=== PATIENT | male | born 1955 | race Two or more races ===

== ENCOUNTER 2024-06-28 00:47 | Inpatient (IN) | payer MEDICAID, OTHER ==
[~2024-06-28] VITALS: Ht 175.3 cm; Wt 82.2 kg
[2024-06-28 01:59] LABS: Basophils # (auto) 0 10 ^3/uL (0-0.2); Basophils % (auto) 0.6 % (0.0-2.0); Eosinophils # (auto) 0.2 10 ^3/uL (0-0.8); Eosinophils % (auto) 2.8 % (0.0-7.0); Hematocrit 45.1 % (41.0-53.0); Hemoglobin 15.4 g/dL (13.5-17.5); Lymphocytes # (auto) 1.9 10 ^3/uL (0.4-5.4); Lymphocytes % (auto) 23.7 % (10.0-50.0); Mean Corpuscular Hemoglobin 29.1 pg (28.0-32.0); Mean Corpuscular Hgb Conc. 34.2 g/dL (32.0-36.0); Mean Corpuscular Volume 85.1 fL (80.0-100.0); Monocytes # (auto) 0.9 10 ^3/uL (0-1.3); Monocytes % (auto) 11.1 % (0.0-12.0); Neutrophils % (auto) 61.8 % (37.0-80.0); Nucleated Red Blood Cells % 0.1 %; Platelet Count (auto) 126 10^3/uL (140-450); Red Cell Distribution Width 13.9 % (11.8-14.3); White Blood Cell 8.1 10^3/uL (4.4-10.8)
[2024-06-28 02:02] LABS: Alanine Aminotransferase 23 U/L (7-40); Alkaline Phosphatase 57 U/L (46-116); Anion Gap 8 (5-15); Aspartate Aminotransferase 20 U/L (13-40); BUN/Creatinine Ratio 14.8 (10.0-20.0); Blood Urea Nitrogen 17 mg/dL (9-23); Calcium 10.4 mg/dL (8.7-10.4); Carbon Dioxide 23 mmol/L (20-30); Chloride 105 mmol/L (98-107); Glucose 109 mg/dL (74-106); Potassium 3.8 mmol/L (3.5-5.1); Sodium 136 mmol/L (136-145)
[2024-06-28 02:03] LABS: Total Protein 8.5 g/dL (5.7-8.2)
[2024-06-28 05:00] VITALS: PULSE 70; RESP 14; O2SAT 99
[2024-06-28] MEDS: METOCLOPRAMIDE HCL 5MG/ml INJ 2ml VIAL IV ONE (05:00)
[2024-06-28] MEDS: SODIUM CHLORIDE 0.9% 1,000 ML IV ONE (05:00)
[2024-06-28] MEDS: ACETAMINOPHEN 325 MG TAB PO ONE (05:37)
[2024-06-28 08:06] VITALS: RESP 14; O2SAT 98
[2024-06-28] MEDS ORDERED: HYDROcodone-ACET 5/325MG TAB PO PRN (08:15)
[2024-06-28] MEDS ORDERED: ONDANSETRON HCL 4 MG/2 ML VIAL IV PRN (08:15)
[2024-06-28 08:22] LABS: Urine Bacteria None Seen /hpf (None Seen)
[2024-06-28 08:32] LABS: Urine Blood Negative /uL (Negative); Urine Clarity Clear (Clear); Urine Color Yellow (Yellow); Urine Protein, UAD TRACE (Negative); Urine Specific Gravity 1.017 (1.001-1.035); Urine Urobilinogen Normal (Negative); Urine WBC 1 /hpf (0 - 3); Urine pH 5.5 (5.0-9.0)
[2024-06-28 09:45] LABS: Triglycerides 116 mg/dL (< 150)
[2024-06-28 09:46] LABS: LDL Cholesterol 98 mg/dL (< 100)
[2024-06-28 09:47] LABS: Cholesterol 161 mg/dL (< 200); HDL Cholesterol 41 mg/dL (40-59)
[2024-06-28] MEDS: DULoxetine HCL 30 MG CAP PO SCH (10:03)
[2024-06-28] MEDS: SODIUM CHLORIDE 0.9% 1,000 ML IV SCH (16:31)
[2024-06-28 22:30] VITALS: BP 146/85; PULSE 69; RESP 17; TEMP 98.3; O2SAT 98
[2024-06-28] MEDS ORDERED: NIFE1TAB31 PO (23:00)
[2024-06-28] MEDS ORDERED: ROSU10TA64 PO (23:00)
[2024-06-28] MEDS ORDERED: ALPR2TAB6 PO (23:01)
[2024-06-28] MEDS ORDERED: DULO60CA41 PO (23:01)
[2024-06-28] MEDS: ATORVASTATIN 20 MG TAB PO SCH (23:12)
[2024-06-29] VITALS (7 sets, daily range): BP systolic 111–143; BP diastolic 61–86; PULSE 53–74; RESP 16–20; TEMP 97.9–98.3; O2SAT 95–100
[2024-06-29] MEDS: MELATONIN 5 MG TAB PO ONE (00:44)
[2024-06-29 07:39] LABS: Basophils # (auto) 0 10 ^3/uL (0-0.2); Basophils % (auto) 0.4 % (0.0-2.0); Eosinophils # (auto) 0.3 10 ^3/uL (0-0.8); Hematocrit 42.6 % (41.0-53.0); Lymphocytes # (auto) 2.4 10 ^3/uL (0.4-5.4); Lymphocytes % (auto) 29.7 % (10.0-50.0); Mean Corpuscular Hemoglobin 28.6 pg (28.0-32.0); Mean Corpuscular Hgb Conc. 32.9 g/dL (32.0-36.0); Mean Corpuscular Volume 86.8 fL (80.0-100.0); Neutrophils # (auto) 4.3 10 ^3/uL (1.6-8.6); Neutrophils % (auto) 53.9 % (37.0-80.0); Platelet Count (auto) 124 10^3/uL (140-450); Red Blood Cells 4.91 10^6/uL (4.5-5.90); Red Cell Distribution Width 14.4 % (11.8-14.3)
[2024-06-29 07:43] LABS: Calcium 9.5 mg/dL (8.7-10.4); Chloride 106 mmol/L (98-107); Potassium 3.8 mmol/L (3.5-5.1); Sodium 140 mmol/L (136-145)
[2024-06-29 07:49] LABS: Glucose 90 mg/dL (74-106)
[2024-06-29 07:51] LABS: BUN/Creatinine Ratio 15.2 (10.0-20.0); Blood Urea Nitrogen 16 mg/dL (9-23)
[2024-06-29 07:58] LABS: Anion Gap 11 (5-15); Carbon Dioxide 23 mmol/L (20-30)
[2024-06-29] MEDS: NIFEdipine ER 30 MG TAB PO SCH (09:32)
[2024-06-30 00:47] VITALS: BP 115/68; PULSE 57; RESP 17; TEMP 98.1; O2SAT 98
[2024-06-30 05:00] VITALS: BP 145/84; PULSE 62; RESP 17; TEMP 97.5; O2SAT 96
[2024-06-30 09:00] VITALS: BP 138/87; PULSE 64; RESP 20; TEMP 98.1; O2SAT 97
[2024-06-30 13:00] VITALS: BP 111/68; PULSE 69; RESP 16; TEMP 98.6; O2SAT 98
[2024-06-30 16:49] VITALS: BP 126/74; PULSE 67; RESP 16; TEMP 98; O2SAT 98
[2024-06-30 22:00] VITALS: BP 161/69; PULSE 74; RESP 16; TEMP 98.4; O2SAT 96
[2024-07-01 01:00] VITALS: BP 137/91; PULSE 80; RESP 17; TEMP 98.3; O2SAT 96
[2024-07-01] MEDS ORDERED: ETOMIDATE (2MG/ML) 20ML VIAL IV ONE (04:02)
[2024-07-01 05:00] VITALS: BP 156/94; PULSE 79; RESP 17; TEMP 98.1; O2SAT 96
[2024-07-01 08:50] VITALS: BP 140/82; PULSE 53; RESP 20; TEMP 98.1; O2SAT 100
[2024-07-01] MEDS ORDERED: GABA-1308 PO (11:23)
[2024-07-01] MEDS ORDERED: ROSU10TA64 PO (11:32)
[2024-07-01] MEDS ORDERED: DULO60CA41 PO (11:32)
[2024-07-01] MEDS ORDERED: NIFE1TAB31 PO (11:32)
[2024-07-01 12:38] VITALS: BP 147/90; PULSE 64; RESP 20; TEMP 98.1; O2SAT 97
[2024-07-01 16:34] VITALS: BP 140/82; PULSE 53; RESP 20; TEMP 98; O2SAT 100
[2024-07-01 17:00] VITALS: BP 113/73; PULSE 63; RESP 20; TEMP 98.3; O2SAT 99
== END 2024-07-01 17:00 | disposition home or self-care (01) | DRG 48 ==
LOC: ER 00:47 → OVERFLOW 08:19 → WEST WING 22:00
PROVIDERS: ADMIT Registered Nurse General Practice; ATTEND Internal Medicine
DX: M54.10 Radiculopathy, site unspecified (principal); E78.5 Hyperlipidemia, unspecified; I10 Essential (primary) hypertension; R51.9 Headache, unspecified; Z88.0 Allergy status to penicillin; Z87.891 Personal history of nicotine dependence
CPT/HCPCS: 36415; 70450; 70551; 71046; 80048; 80053; 80061; 81001; 82607; 83036; 84484; 85025; 93005; 96360; G0378

== ENCOUNTER 2025-05-10 16:22 | Emergency (ER) | payer MEDICAID ==
[~2025-05-10] VITALS: Ht 170.2 cm; Wt 82.0 kg
[~2025-05-10 16:22] MED LIST: ALPR2TAB6 PO; DULO60CA41 PO; GABA-1308 PO; NIFE1TAB31 PO; ROSU10TA64 PO
[2025-05-10] MEDS ORDERED: SODIUM CHLORIDE 0.9% 500 ML IVB ONE (17:00)
--- NOTE | 2025-05-10 17:46 | ED.PDOC ---
GI ASSESSMENT HPI Comments This is a 69-year-old male who comes in with chief complaint of lower abdominal pain that radiates towards the back. The patient states that the symptoms started approximately 40 minutes ago. The patient is experiencing some nausea but denies any diarrhea. The patient states that the pain is a 10/10. There has been no fever but the patient is also having some chills. Upon arrival, the patient was rolled in a wheelchair and is complaining of this pain. The patient states that he has had a possible aneurysm in the abdominal area as well as to the groin area. Chief Complaint: Abdominal Pain Time Seen by MD: 16:29 Reviewed Notes: Nurses Notes, Medications, Allergies (Allergies to penicillin) Allergies: Coded Allergies: Penicillins (Verified Allergy, Unknown, 06/28/24) Home Meds Active Scripts Duloxetine Hcl (Cymbalta) 60 Mg Cap, 30 MG PO DAILY, #30 CAP 5 Refills Prov:MYLES FUENTES MD 07/01/24 Rosuvastatin Calcium (Rosuvastatin Calcium) 10 Mg Tab, 10 MG PO HS, #30 TAB 5 Refills Prov:MYLES FUENTES MD 07/01/24 Nifedipine (Nifedipine Er) 30 Mg Tab, 30 MG PO DAILY, #30 TAB 5 Refills Prov:MYLES FUENTES MD 07/01/24 Gabapentin (Gabapentin) 100 Mg Cap, 1 CAP PO TID, #90 CAP 2 Refills Prov:MYLES FUENTES MD 07/01/24 Reported Medications Alprazolam (Alprazolam) 2 Mg Tab, 2 MG PO HS, TAB 06/28/24 Information Source: Patient Mode of Arrival: Wheelchair Timing: Hours Duration: Since onset Prehospital treatment: None Quality: Aching, Sharp Vomitus: None Stool: Normal Severity: Moderate Recent: None Recent Hx of: None Pain Location: RLQ, LLQ Modifying Factors: Nothing Associated sign and symptoms: Nausea, Abdominal Pain, Other (Chills) Past Medical History PAST MEDICAL HISTORY: High Lipids, HTN Past Medical History (Other): Prediabetic, CRF, fatty liver, tachycardia, AAA Surgical History: Denies all surgeries Surgical History (Other): Right lung drainage Family History Family History: Family hx of DM, Family hx of HTN Social History Smoker: Non-Smoker Alcohol: Occasionally Drugs: Denies Drug Use Lives In: Home Constitutional: reports: chills; denies: diaphoresis, fatigue, fever, malaise, sweats, weakness, others EENTM: denies: blurred vision, double vision, ear bleeding, ear discharge, ear drainage, ear pain, ear ringing, eye pain, eye redness, hearing loss, mouth pain, mouth swelling, nasal discharge, nose bleeding, nose congestion, nose pain, photophobia, tearing, throat pain, throat swelling, voice changes, others Respiratory: denies: cough, hemoptysis, orthopnea, SOB at rest, shortness of breath, SOB with excertion, stridor, wheezing, others Cardiovascular: denies: chest pain, dizzy spells, diaphoresis, Dyspnea on exertion, edema, irregular heart beat, left arm pain, lightheadedness, palpitations, PND, syncope, others Gastrointestinal: reports: abdominal pain, nausea; denies: abdomen distended, blood streaked bowels, constipated, diarrhea, dysphagia, difficulty swallowing, hematemesis, melena, poor appetite, poor fluid intake, rectal bleeding, rectal pain, vomiting, others Genitourinary: denies: burning, dysuria, flank pain, frequency, hematuria, incontinence, penile discharge, penile sore, pain, testicle pain, testicle swelling, urgency, others Neurological: denies: dizziness, fainting, headache, left sided numbness, left sided weakness, numbness, paresthesia, pre-existing deficit, right sided numbness, right sided weakness, seizure, speech problems, tingling, tremors, weakness, others Musculoskeletal: denies: back pain, gout, joint pain, joint swelling, muscle pain, muscle stiffness, neck pain, others Integumetry: denies: bruises, change in color, change in hair/nails, dryness, laceration, lesions, lumps, rash, wounds, others Allergic/Immunocompromised: denies: Difficulty Healing, Frequent Infections, Hives, Itching, others Hematologic/Lymphatic: denies: anemia, blood clots, easy bleeding, easy bruising, swollen glands, others Endocrine: denies: excessive hunger, excessive sweating, excessive thirst, excessive urination, flushing, intolerance to cold, intolerance to heat, unexplained weight gain, unexplained weight loss, others Psychiatric: denies: anxiety, bipolar disorder, depression, hopeless, panic disorder, schizophrenia, sleepless, suicidal, others Physical Exam General Appearance: Moderate Distress HEENT: Normal ENT Inspection, Pharynx Normal, TMs Normal Neck: Full Range of Motion, Non-Tender, Normal, Normal Inspection Respiratory: Chest Non-Tender, Lungs Clear, No Accessory Muscle Use, No Respiratory Distress, Normal Breath Sounds Cardiovascular: No Edema, No JVD, No Murmur, No Gallop, Normal Peripheral Pulses, Regular Rate/Rhythm Breast Exam: Deferred Gastrointestinal: LLQ, No Organomegaly, No Pulsatile Mass, Normal Bowel Sounds, RLQ, Soft, Tenderness Genitalia: Deferred Pelvic: Deferred Rectal: Deferred Extremities: No calf tenderness, Normal capillary refill, Normal inspection, Normal range of motion, Non-tender, No pedal edema Musculoskeletal : Apperance: Normal Neurologic: Alert, 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 Was a procedure done?: No GI differential Dx Differential Diagnosis: Appendicitis, Aortic dissection, Bowel Obstruction, Diverticular disease, Gastritis/PUD, Gastroenteritis, Pancreatitis, UTI X-Ray, Labs, Meds, VS Vital Signs Date Time Temp Pulse Resp B/P (MAP) Pulse Ox O2 Delivery O2 Flow Rate FiO2 05/10/25 17:46 75 05/10/25 16:47 75 05/10/25 16:30 98.6 78 20 129/65 97 98.6 Lab Test 05/10/25 17:47 Range/Units White Blood Count 6.3 4.4-10.8 10^3/uL Red Blood Count 4.96 4.5-5.90 10^6/uL Hemoglobin 13.8 13.5-17.5 g/dL Hematocrit 41.0 41.0-53.0 % Mean Corpuscular Volume 82.5 80.0-100.0 fL Mean Corpuscular Hemoglobin 27.7 L 28.0-32.0 pg Mean Corpuscular Hemoglobin Concent 33.6 32.0-36.0 g/dL Red Cell Distribution Width 14.9 H 11.8-14.3 % Platelet Count 170 140-450 10^3/uL Mean Platelet Volume 9.6 6.9-10.8 fL Neutrophils (%) (Auto) 51.9 37.0-80.0 % Lymphocytes (%) (Auto) 29.0 10.0-50.0 % Monocytes (%) (Auto) 11.6 0.0-12.0 % Eosinophils (%) (Auto) 6.6 0.0-7.0 % Basophils (%) (Auto) 0.9 0.0-2.0 % Neutrophils # (Auto) 3.3 1.6-8.6 10 ^3/uL Lymphocytes # (Auto) 1.8 0.4-5.4 10 ^3/uL Monocytes # (Auto) 0.7 0-1.3 10 ^3/uL Eosinophils # (Auto) 0.4 0-0.8 10 ^3/uL Basophils # (Auto) 0.1 0-0.2 10 ^3/uL Nucleated Red Blood Cells 0.1 % Sodium Level 141 136-145 mmol/L Potassium Level 4.1 3.5-5.1 mmol/L Chloride Level 107 98-107 mmol/L Carbon Dioxide Level 26 20-31 mmol/L Anion Gap 8 5-15 Blood Urea Nitrogen 16 9-23 mg/dL Creatinine 1.02 0.700-1.30 mg/dL Glomerular Filtration Rate Calc 80 >90 mL/min BUN/Creatinine Ratio 15.7 10.0-20.0 Serum Glucose 105 74-106 mg/dL Calcium Level 9.3 8.7-10.4 mg/dL Total Bilirubin 0.4 0.2-1.0 mg/dL Aspartate Amino Transferase (AST) 28 13-40 U/L Alanine Aminotransferase (ALT) 25 7-40 U/L Alkaline Phosphatase 63 46-116 U/L Total Protein 7.8 5.7-8.2 g/dL Albumin 4.3 3.2-4.8 g/dL Lipase 36 12-53 U/L Procedure: CT ANGIO AORTIC ABDOMINAL IMPRESSION: 1. Infrarenal abdominal aortic aneurysm measures up to 4.7 cm. No evidence of dissection. Recommend vascular surgery consultation 2. Smaller aortic aneurysm is seen more superiorly measuring up to 3.2 cm. No evidence of dissection. 3. 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 No evidence of dissection. IV Hep-Lock was established. We did speak with the physician at [facility] and the patient has been accepted for transfer The CBC is within normal limits The chemistry panel is within normal limits The lipase is within normal limits At this time, the patient will be transferred code 3. We have discussed the findings with the patient and they are in agreement with the management Images Reviewed?: Images reviewed and evaluated by me Time of 1ST Reevaluation: 17:45 Reevaluation 1ST: Unchanged Patient Education/Counseling: Diagnosis, Treatment, Prognosis Family Education/Counseling: Diagnosis, Treatment, Prognosis SEPSIS Sepsis Screen Date sepsis recognized/suspect: May 10, 2025 Time Sepsis recognized/suspect: 1629 Recent Procedure: No On Antibiotic Therapy: No Respiratory Rate >20: No Heart Rate >90: No Temp<36 C (96.8 F) or >38.3 C: No SBP <90 or MAP <65 mmHG: No New Acute Mental Status Change: No Is the patient on CPAP, BIPAP,: No Physician Orders Electrocardigram (05/10/25 16:50) Electrocardigram (05/10/25 17:50) Urinalysis (05/10/25 16:57) Heplock Iv (05/10/25 16:57) Bookkeeper Receptionist (05/10/25 16:57) Blood Pressure (05/10/25 16:57) Pulse Oximetry (05/10/25 16:57) Angio Aortic Abdominal (05/10/25 16:57) Imaging Transfer Request (05/10/25 19:01) Vital Signs Date Time Temp Pulse Resp B/P (MAP) Pulse Ox O2 Delivery O2 Flow Rate FiO2 05/10/25 17:46 75 05/10/25 16:47 75 05/10/25 16:30 98.6 78 20 129/65 97 98.6 Laboratory Tests Test 05/10/25 17:47 White Blood Count 6.3 10^3/uL (4.4-10.8) Departure 1 Departure Time of Disposition: 19:47 Impression: Primary Impression: Intractable abdominal pain Additional Impressions: Infrarenal abdominal aortic aneurysm (AAA) without rupture Aneurysm of internal iliac artery Disposition: 51 HOSPICE/MEDICAL FACILITY Condition: Fair Critical Care Note Critical Care Time?: Yes (35 min-critical care time only) Stability Stability form required: Yes Stable for transfer: Intended for transfer, To designated facility Unstable for transfer: ED Physician Assesment (Clinical assesment) Heart Score Heart Score: Heart Score Response (Comments) Value History N/A 0 EKG N/A 0 Age N/A 0 Risk Factors N/A 0 Troponin N/A 0 Total 0 I personally scribed for NORRIS VILLARREAL MD ([email or web address]) on 05/10/25 at 19:31. Electronically submitted by Gladys Matos ([facility]). NORRIS VILLARREAL MD May 10, 2025 17:46
[2025-05-10 18:06] LABS: Hematocrit 41.0 % (41.0-53.0); Hemoglobin 13.8 g/dL (13.5-17.5); Mean Corpuscular Hemoglobin 27.7 pg (28.0-32.0); Mean Corpuscular Volume 82.5 fL (80.0-100.0); Nucleated Red Blood Cells % 0.1 %
[2025-05-10 18:21] LABS: Alanine Aminotransferase 25 U/L (7-40); Albumin 4.3 g/dL (3.2-4.8); Alkaline Phosphatase 63 U/L (46-116); Anion Gap 8 (5-15); BUN/Creatinine Ratio 15.7 (10.0-20.0); Blood Urea Nitrogen 16 mg/dL (9-23); Calcium 9.3 mg/dL (8.7-10.4); Carbon Dioxide 26 mmol/L (20-31); Chloride 107 mmol/L (98-107); Glucose 105 mg/dL (74-106); Lipase 36 U/L (12-53); Potassium 4.1 mmol/L (3.5-5.1); Sodium 141 mmol/L (136-145); Total Protein 7.8 g/dL (5.7-8.2)
[2025-05-10 18:22] LABS: Bilirubin, Total 0.4 mg/dL (0.2-1.0)
[2025-05-10 19:20] VITALS: PULSE 66; RESP 12; O2SAT 100
--- NOTE | 2025-05-10 19:28 | DVH ---
Procedure: CT ANGIO AORTIC ABDOMINAL HISTORY: R/O AAA pain Comparison Study: None Exam Date:05/10/2025 06:38 PM TECHNIQUE: CTA scanner volumetric data acquisition of abdomen and pelvis was obtained following intravenous admi nistration of intravenous contrast without any reported adverse effects. Axial images were reconstru cted and additional sagittal and coronal images were reformatted. arterial phase imaging were perfor med. Postprocessing was also performed on a Separate workstation. 3D images were performed on a dedicated workstation and reviewed for reporting. Radiation Dose : CT Dose: CTDI volume is 16.37 mGy. Dose-length product is 1240 mGy*cm FINDINGS: Vascular: Infrarenal abdominal aortic aneurysm measures up to 4.7 cm. No evidence of dissection. Smaller aortic aneurysm is seen more superiorly measuring up to 3.2 cm. 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 Lung Bases: No acute or significant lung base finding. Normal heart size. No pleural or pericardial effusion. Liver: The liver is normal in size. No focal lesions. Normal hepatic vascular enhancement. Gallbladder and Biliary Tree: Unremarkable Spleen: Unremarkable Pancreas: The pancreas is normal in appearance without focal lesions or abnormal enhancement. Adrenal Glands: Unremarkable Kidneys: Kidneys demonstrate normal symmetric enhancement without focal lesions, calculi or hydroneph rosis. Bladder: Unremarkable Bowel: The stomach is grossly normal in appearance. Small bowel and colon are normal in caliber and d istribution. Normal appendix is visualized in the right lower quadrant without findings of appendici tis. Diffuse colonic diverticulosis. Ascites: Absent Lymphadenopathy: No mesenteric, retroperitoneal or periportal lymphadenopathy. Abdominal Wall and Mesentery: Unremarkable. Vasculature: The visualized abdominal aorta is normal in size and caliber. Abdominal and pelvic vess els demonstrate normal enhancement. Pelvic Organs: Unremarkable Musculoskeletal: No aggressive focal bony lesions, acute fractures or dislocation. IMPRESSION: 1. Infrarenal abdominal aortic aneurysm measures up to 4.7 cm. No evidence of dissection. Recommend v ascular surgery consultation 2. Smaller aortic aneurysm is seen more superiorly measuring up to 3.2 cm. No evidence of dissection. 3. 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 No evidence of dissecti on.
[2025-05-10] MEDS: IOHEXOL 350 MG/ML 100ML IJ ONE (19:38)
[2025-05-10 20:22] VITALS: BP 131/71; PULSE 66; RESP 18; TEMP 97.9; O2SAT 99
[2025-05-10] MEDS: ONDANSETRON HCL 4 MG/2 ML VIAL IV ONE (20:32)
[2025-05-10] MEDS: MORPHINE SULFATE 4 MG/ML SYR/VIAL IV ONE (20:32)
--- NOTE | 2025-05-11 13:42 | ECG ---
[facility] Test Date: 2025-05-10 Test Time: 16:47:23 Pat Name: CIARAN SALEEM Department: ER Room: Gender: M Admissions Clerk: GP : [id number] Requested By: NORRIS VILLARREAL Order Number: [id number] Reading MD: Hiram Gan Measurements Intervals [place] Rate: 75 P: 12 [place]: 187 QRS: 106 QRSD: 89 T: 84 QT: 370 QTc: 414 Interpretive Statements Sinus rhythm Right axis deviation Electronically Signed On 05-16-2025 17:44:22 PDT by Hiram Gan Please click the below link to view image of tracing.
== END 2025-05-10 20:34 | disposition short-term general hospital (02) ==
LOC: ER 16:22
DX: I72.3 Aneurysm of iliac artery (principal); I10 Essential (primary) hypertension; I71.43 Infrarenal abdominal aortic aneurysm, without rupture; E78.5 Hyperlipidemia, unspecified; Z79.899 Other long term (current) drug therapy; Z88.0 Allergy status to penicillin
CPT/HCPCS: 36415; 74175; 80053; 83690; 85025; 93005; 99285; Q9967